=== PATIENT | female | born 1970 | race Caucasian/White ===

== ENCOUNTER 2023-07-25 12:40 | Outpatient (CLI) | payer SELFPAY | END 2023-07-25 12:41 | disposition EMS.NT | LOC: EMS 12:40 | DX: S01.01XA Laceration without foreign body of scalp, initial encounter (principal); W20.8XXA Other cause of strike by thrown, projected or falling object, initial encounter; Y92.001 Dining room of unspecified non-institutional (private) residence as the place of occurrence of the external cause ==

== ENCOUNTER 2023-12-23 08:15 | Emergency (ER) | payer OTHER ==
[2023-12-23 09:36] LABS: BILIRUBIN,URINE NEGATIVE (NEGATIVE); GLUCOSE, URINE (UA) NEGATIVE (NEGATIVE); KETONES,URINE (UA) NEGATIVE (NEGATIVE); LEUKOCYTE ESTERASE, URINE NEGATIVE (NEGATIVE); NITRITE,URINE NEGATIVE (NEGATIVE); OCCULT BLOOD,URINE NEGATIVE (NEGATIVE); PROTEIN,URINE NEGATIVE (NEGATIVE); UROBILINOGEN,URINE 0.2 (NORMAL) E.U./dL (NORMAL)
[2023-12-23 09:37] LABS: CLARITY,URINE CLEAR (CLEAR)
[2023-12-23] MEDS: DEXAMETHASONE 10 MG/ML VIAL IM STA (10:00)
[2023-12-23] MEDS: HYDROmorphone 1 MG/ML CARPUJECT IM STA (10:00)
[2023-12-23] MEDS: ONDANSETRON 4 MG/2 ML VIAL IM STA (10:00)
[2023-12-23] MEDS: KETOROLAC 60 MG/2 ML VIAL IM STA (10:00)
--- NOTE | 2023-12-23 10:21 | XRAY Report ---
PROCEDURE: Lumbar Spine 2-3V INDICATIONS: pain TECHNIQUE: 3 views of the lumbar spine were acquired. COMPARISON: None. FINDINGS: Surgical change: None. Bones: Lumbarization of S1. Lower lumbar facet arthropathy, relatively mild. There is normal bony ali gnment. No vertebral body compression fractures. No suspicious bony lesions. Soft tissues: Overlying bowel gas pattern is normal. No suspicious soft tissue calcifications. IMPRESSION: 1. Note made of lumbarization of S1. 2. Mild lower lumbar facet arthropathy. 3. No acute bony abnormality. Reviewed by: Lawrence Gould MD on 12/23/2023 10:19 AM PDT Approved by: Lawrence Gould MD on 12/23/2023 10:19 AM PDT Station ID: [id number]
[2023-12-23 11:44] VITALS: BP 140/91; O2SAT 98
--- NOTE | 2023-12-23 11:55 | ED Physician Documentation ---
History of Present Illness - Stated complaint Stated Complaint: N/V, BACK/LEG PX,NUMBNESS - Chief complaint Chief Complaint: Back Pain - History obtained from History obtained from: Patient - Additonal information Additional information: The pt comes to the ED with CC of low back pain that has been going on for about a week. She says she has had back pain before, but this is worse than usual. 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 She says she has some numbness in both feet, and also got a tingly sensation on both sides of her face. No urinary sx. No abd pain. No fevers or chills. She states the pain is on each side of her spine, and radiates toward each hip. PD PAST MEDICAL HISTORY - Past Medical History Past Medical History: Yes Cardiovascular: None Respiratory: Asthma Neuro: Headaches, Migraines Endocrine/Autoimmune: None GI: None STORE PROMOTER: None : None HEENT: None Psych: None Musculoskeletal: Gout, Chronic back pain Derm: Eczema, Psoriasis - Past Surgical History Past Surgical History: Yes General: Appendectomy /STORE PROMOTER: section - Present Medications Home Medications: Ambulatory Orders Medication Instructions Recorded Confirmed Cyclobenzaprine [Flexeril] 10 mg PO TID PRN #20 tablet 12/23/23 HYDROcod/ACETAM 5/325 [[place] 5/325] 1 - 2 tablet PO Q6H PRN #14 tablet 12/23/23 Sertraline [Zoloft] 50 mg PO DAILY 12/23/23 12/23/23 predniSONE [Deltasone] 10 mg PO [id number] #42 tab 12/23/23 - Allergies Allergies/Adverse Reactions: Allergies Allergy/AdvReac Type Severity Reaction Status Date / Time No Known Drug Allergies Allergy Verified 12/23/23 08:24 - Social History Does the pt smoke?: No Smoking Status: Never smoker Does the pt drink ETOH?: Yes Does the pt have substance abuse?: Yes Substance Use and Type: Marijuana - Immunizations Immunizations are current?: Yes - POLST Patient has POLST: No PD ED PE NORMAL - Vitals Vital signs reviewed: Yes - General General: Alert and oriented X 3, No acute distress, Well developed/nourished - HEENT HEENT: Atraumatic, EOMI, Moist mucous membranes - Neck Neck: Supple, no meningeal sign - Cardiac Cardiac: Strong equal pulses - Respiratory Respiratory: No respiratory distress - Abdomen Abdomen: Soft, Non tender, Non distended - Back Back: No CVA TTP, No spinal TTP, Other (TTP of lumbar paraspinal musculature around the L3-5 level. No sciatic tenderness.) - Derm Derm: Normal color, Warm and dry, No rash - Extremities Extremities: No deformity, No tenderness to palpate - Neuro Neuro: No motor deficit, No sensory deficit, Other (Alert, grossly oriented) - Psych Psych: Normal mood, Normal affect Results - Vitals Vitals: Vital Signs - 24 hr 12/23/23 12/23/23 08:24 11:38 Temperature 36.1 C L 37.1 C Heart Rate 61 68 Respiratory 20 16 Rate Blood Pressure 149/79 H 140/91 H O2 Saturation 100 98 Oxygen O2 Source Room air - Labs Labs: Laboratory Tests 12/23/23 09:10 Urine Color DARK YELLOW Urine Clarity CLEAR Urine pH 6.0 Ur Specific Jewett 1.025 Urine Protein NEGATIVE Urine Glucose (UA) NEGATIVE Urine Ketones NEGATIVE Urine Occult Blood NEGATIVE Urine Nitrite NEGATIVE Urine Bilirubin NEGATIVE Urine Urobilinogen 0.2 (NORMAL) Ur Leukocyte Esterase NEGATIVE Ur Microscopic Review NOT INDICATED Urine Culture Comments NOT INDICATED - Rads (name of study) lumbar spine XR series Relevant Findings:: Final report received, See rad report (Mild facet arthropathy, lumbarization of S1) PD Medical Decision Making - ED course Complexity details: reviewed results, re-evaluated patient, considered differential, d/w patient ED course: The pt was feeling better after symptomatic management in the ED. Her XR series demonstrated mild chronic findings. I d/w pt that I suspect she has strained her back from the daily lifting and transferring. We have discussed symptomatic management at home. The pt is scheduled for a massage later today, and I have encouraged her to keep this appointment. We have discussed follow-up for MRI if no improvement in the next couple of weeks, and we have discussed the usual indications for return. Departure - Departure Disposition: 01 Home, Self Care Clinical Impression: Back pain Qualifiers: Back pain location: low back pain Chronicity: acute Back pain laterality: bilateral Sciatica presence: without sciatica Qualified Code(s): M54.50 - Low back pain, unspecified Condition: Stable Instructions: ED Neck Back Pain General Prescriptions: predniSONE [Deltasone] 10 mg PO [id number] #42 tab Cyclobenzaprine [Flexeril] 10 mg PO TID PRN #20 tablet PRN Reason: Spasms HYDROcod/ACETAM 5/325 [[place] 5/325] 1 - 2 tablet PO Q6H PRN #14 tablet PRN Reason: Pain Comments: You have some mild degenerative changes on your x-ray but otherwise, your x-ray looks pretty good. It sounds like this is more of a strain from day-to-day activities and heavy lifting, rather than a an acute injury. You have been treated today with medication to help with pain, inflammation, and muscle spasm. Prescriptions for medication for the same have been electronically transmitted to the [facility] pharmacy in [place]. You may want to go through with your plans to get a massage later today, as loudly will be helpful with your tight muscles. Please follow-up with your primary doctor if you do not find you are doing better in the next couple of weeks. Discharge Date/Time: 12/23/23 12:07
== END 2023-12-23 12:07 | disposition home or self-care (01) ==
LOC: ED 08:15
DX: M54.50 Low back pain, unspecified (principal); X50.0XXA Overexertion from strenuous movement or load, initial encounter; Y93.F2 Activity, caregiving, lifting
CPT/HCPCS: 72100; 81003; 96372; 99283; 99285; J1170; 81001; 87086

== ENCOUNTER 2024-02-04 10:42 | Outpatient (CLI) | payer OTHER ==
--- NOTE | 2024-02-04 17:51 | Ultrasound Report ---
PROCEDURE: Extremity Soft Tissue Limited INDICATIONS: LEFT ARM SOFT TISSUE MASS TECHNIQUE: Real-time scanning was performed of the left arm/elbow, with image documentation. COMPARISON: None. FINDINGS: Focused ultrasound examination of anterior left elbow/proximal forearm at patient's report ed area of palpable lump shows 3.9 x 1.0 x 3.5 cm solid structure within subcutaneous soft tissue and is isoechoic to adjacent subcutaneous fat. IMPRESSION: Finding most likely represent benign lipoma in left proximal forearm soft tissue. Clinic al correlation and follow-up is recommended. Reviewed by: Wang Palm MD on 02/04/2024 5:50 PM PDT Approved by: Wang Palm MD on 02/04/2024 5:50 PM PDT Station ID: [id number]
== END 2024-02-04 10:43 | disposition home or self-care (01) ==
LOC: DI 10:42
PROVIDERS: ATTEND Family Medicine
DX: R22.32 Localized swelling, mass and lump, left upper limb (principal)